=== PATIENT | female | born 1960 | race Two or more races ===

== ENCOUNTER 2024-07-07 08:59 | Outpatient (CLI) | payer OTHER ==
[~2024-07-07 08:59] MED LIST: ALTACE10 MG PO; AMOX1TAB12 PO; ASA81 MG PO; CLONAZEPAM1 MG PO; DOCUSATE SODIU100 MG PO; FORTAMET1000 MG PO; LANTUS SOL100 UNIT/1; NEURONTIN800 MG PO; PERCOCET 5-3251 EACH PO; SIMVASTATIN20 MG PO; SYNTHROID75 MCG PO; [UNRECOGNIZED DRUG - OTHER]
== END 2024-07-07 09:05 | disposition home or self-care (01) ==
LOC: SONOGRAMA 08:59
PROVIDERS: ATTEND Pathology Anatomic Pathology & Clinical Pathology
DX: D34 Benign neoplasm of thyroid gland (principal)